=== PATIENT | male | born 1980 | race Caucasian/White ===

== ENCOUNTER → 2018-12-04 | Outpatient (CLI) | payer OTHER ==
[~2018-12-04] MED LIST: LAMO100T5 PO; LEVO50TA PO; LISD50CA3 PO; LISI-334 PO; METF500T25 PO
--- NOTE | 2018-12-04 13:08 | KCIC ---
EXAM: Thyroid sonogram. HISTORY: Neck mass. TECHNIQUE: Sonographic imaging of the neck was performed. COMPARISON: None. FINDINGS: The right there are lobe measures 4.2 x 1.6 x 1.9 cm. The left thyroid lobe measures 4.7 x 1.3 x 1.5 cm. The isthmus measures 2.6 mm in thickness. The thyroid parenchyma is diffusely heterogeneous. No discrete nodule is seen. There is no suspicious finding within the right neck at the site of palpable concern. Specifically, no mass or lymphadenopathy is seen. IMPRESSION: 1. Diffusely heterogeneous thyroid. This can be seen as a sequela of prior thyroiditis. No nodule is seen. 2. No suspicious finding at the site of palpable concern within the right neck. Electronically signed by: Jessica Hyde MD (12/04/2018 1:05 PM) [facility]
== END | disposition home or self-care (01) ==
LOC: KCIC US 12:02
PROVIDERS: ATTEND Family Medicine
DX: R22.1 Localized swelling, mass and lump, neck (principal)
CPT/HCPCS: 76536

== ENCOUNTER → 2018-12-19 | Outpatient (CLI) | payer OTHER ==
--- NOTE | 2018-12-19 15:24 | KCIC ---
Examination: CT MAXILLOFACIAL WO CONTRAST History: Chronic sinus pressure, headache for 2 months Comparison/Correlation: None Findings: Axial images of the maxilla facial structures were obtained. Sagittal and coronal reformatted images were provided. Globes and optic nerves are unremarkable. Extraocular muscles are unremarkable. Patchy opacification of ethmoid air cells is noted. Frontal sinus mucosal thickening is mild. Right maxillary sinus 1.9 cm diameter mucous retention cyst is present. Mucosal thickening of maxillary sinuses is noted. Opacification of the right sinus ostium bilaterally is noted and greater severity on the right. Partial opacification of the left sphenoid sinus is evident. Right sphenoid sinus is unremarkable. Subtle levo convexity of the bony nasal septum is evident. Temporomandibular joints are unremarkable. Absence of right lower molar crowns are noted. Impression: Chronic paranasal sinusitis. No fluid levels to suggest acute sinusitis. PQRS Compliance Statement: One or more of the following individualized dose reduction techniques were utilized for this examination: 1. Automated exposure control 2. Adjustment of the mA and/or kV according to patient size 3. Use of iterative reconstruction technique Electronically signed by: Zach Mcgowan MD (12/19/2018 3:21 PM) [facility]
== END | disposition home or self-care (01) ==
LOC: KCIC CT 11:04
PROVIDERS: ATTEND Family Medicine
DX: J32.8 Other chronic sinusitis (principal); J34.1 Cyst and mucocele of nose and nasal sinus; J34.89 Other specified disorders of nose and nasal sinuses
CPT/HCPCS: 70486